=== PATIENT | female | born 1955 | race Caucasian/White ===

== ENCOUNTER 2016-04-26 20:35 | Inpatient (IN) | payer OTHER ==
[~2016-04-26] VITALS: Ht 160 cm; Wt 55.6 kg
[2016-04-26] MEDS ORDERED: DICYCLOMINE 20MG/2ML VIAL IM ONE (21:21)
[2016-04-26] MEDS ORDERED: ONDANSETRON 4 MG VIAL ONE (21:21)
[2016-04-26] MEDS ORDERED: SODIUM CHLORIDE 0.9% 1,000 ML ONE (21:21)
[2016-04-26] MEDS ORDERED: ACETAMINOPHEN 325 MG TAB ONE (21:57)
[2016-04-26] MEDS ORDERED: MULTIVITAMIN IV ONE (23:15)
[2016-04-26] MEDS ORDERED: [UNRECOGNIZED DRUG - OTHER] IV ONE (23:15)
[2016-04-26] MEDS ORDERED: THIAMINE IV ONE (23:15)
[2016-04-26] MEDS ORDERED: FOLIC ACID 1 MG IV ONE (23:15)
[2016-04-26] MEDS ORDERED: LACTATED RINGERS IV ONE (23:15)
[2016-04-26] MEDS ORDERED: OSELTAMIVIR 75 MG CAP PO ONE (23:20)
[2016-04-26] MEDS ORDERED: SODIUM CHLORIDE 0.9% 500 ML IV ONE (23:27)
[2016-04-26] MEDS ORDERED: MAG HYDROX 30 ML UDC PO PRN (23:35)
[2016-04-26] MEDS ORDERED: PROMETHAZINE 25 MG/ML VIAL IV PRN (23:35)
[2016-04-26] MEDS ORDERED: ALU/MAG/SIM 30 ML UDC PO PRN (23:35)
[2016-04-26] MEDS ORDERED: CHLORDIAZEPOXIDE 25 MG CAP PO PRN (23:35)
[2016-04-27] VITALS (11 sets, daily range): BP systolic 112–144; RESP 18–20; TEMP 99.2–100; Ht 160 cm; Wt 55.6 kg
[2016-04-27] MEDS: FAMOTIDINE 20 MG INJ IV SCH ×3 (02:39→21:24)
[2016-04-27] MEDS: POTASSIUM CHLORIDE PREMIX 50 ML IV SCH ×4 (02:40→06:26)
[2016-04-27] MEDS: ONDANSETRON 4 MG VIAL IV PRN ×2 (03:36→08:41)
[2016-04-27] MEDS ORDERED: *PINK BRACELET XX ONE (05:30)
[2016-04-27] MEDS: LEVOTHYROXINE 0.05 MG TAB PO SCH (06:17)
[2016-04-27] MEDS: FOLIC ACID 1 MG TAB PO SCH (08:14)
[2016-04-27] MEDS: [UNRECOGNIZED DRUG - OTHER] XX SCH ×2 (08:14→20:00)
[2016-04-27] MEDS: Propranolol 10 MG TAB PO SCH ×2 (08:16→21:25)
[2016-04-27] MEDS: MULTIVITS/MINERALS (THERAGRAN M) TAB PO SCH (08:16)
[2016-04-27] MEDS: THIAMINE 100 MG TAB PO SCH (08:16)
[2016-04-27] MEDS: OSELTAMIVIR 75 MG CAP PO SCH ×2 (08:17→21:25)
[2016-04-27] MEDS: SODIUM CHLOR 0.9% W/KCL 20MEQ 1,000 ML IV SCH ×2 (08:18→18:07)
[2016-04-27] MEDS: METRONIDAZOLE 500 MG TAB PO SCH ×2 (16:08→21:25)
[2016-04-27] MEDS ORDERED: SODIUM CHLOR 0.9% W/KCL 20MEQ 1,000 ML IV SCH (20:35)
[2016-04-28] VITALS (7 sets, daily range): BP systolic 100–136; RESP 16–18; TEMP 97.6–99.2
[2016-04-28] MEDS: LEVOTHYROXINE 0.05 MG TAB PO SCH (05:05)
[2016-04-28] MEDS: [UNRECOGNIZED DRUG - OTHER] XX SCH ×2 (08:42→19:27)
[2016-04-28] MEDS: FAMOTIDINE 20 MG INJ IV SCH ×2 (08:42→19:27)
[2016-04-28] MEDS: METRONIDAZOLE 500 MG TAB PO SCH ×3 (08:42→19:27)
[2016-04-28] MEDS: MULTIVITS/MINERALS (THERAGRAN M) TAB PO SCH (08:42)
[2016-04-28] MEDS: Propranolol 10 MG TAB PO SCH ×2 (08:42→19:27)
[2016-04-28] MEDS: OSELTAMIVIR 75 MG CAP PO SCH ×2 (08:42→19:26)
[2016-04-28] MEDS: FOLIC ACID 1 MG TAB PO SCH (08:42)
[2016-04-28] MEDS: THIAMINE 100 MG TAB PO SCH (08:42)
[2016-04-28] MEDS: NICOTINE 21 MG/24 HR TRANSDERM SCH (10:08)
[2016-04-28] MEDS: ACETAMINOPHEN 325 MG TAB PO PRN ×3 (10:08→20:03)
[2016-04-28] MEDS: KCL CR 8 MEQ TAB PO SCH ×3 (10:11→19:27)
[2016-04-29] MEDS: ACETAMINOPHEN 325 MG TAB PO PRN
[2016-04-29 03:51] VITALS: BP_SYST 126; RESP 18; TEMP 97
[2016-04-29] MEDS: LEVOTHYROXINE 0.05 MG TAB PO SCH (06:18)
[2016-04-29] MEDS: [UNRECOGNIZED DRUG - OTHER] XX SCH (08:00)
[2016-04-29] MEDS: MULTIVITS/MINERALS (THERAGRAN M) TAB PO SCH (08:13)
[2016-04-29] MEDS: FAMOTIDINE 20 MG INJ IV SCH (08:13)
[2016-04-29] MEDS: Propranolol 10 MG TAB PO SCH (08:13)
[2016-04-29] MEDS: THIAMINE 100 MG TAB PO SCH (08:13)
[2016-04-29] MEDS: METRONIDAZOLE 500 MG TAB PO SCH (08:14)
[2016-04-29] MEDS: KCL CR 8 MEQ TAB PO SCH (08:14)
[2016-04-29] MEDS: NICOTINE 21 MG/24 HR TRANSDERM SCH (08:14)
[2016-04-29] MEDS: OSELTAMIVIR 75 MG CAP PO SCH (08:14)
[2016-04-29 08:50] VITALS: BP_SYST 138; RESP 20; TEMP 97
[2016-04-29 12:04] VITALS: BP_SYST 138; RESP 20; TEMP 97
[2016-04-29 12:47] VITALS: BP_SYST 124; RESP 18; TEMP 99
== END 2016-04-29 17:05 | disposition home or self-care (01) | DRG 372 ==
LOC: ER 20:35 → EMR 23:31 → ENPENDDIS 23:31 → 4THW 04-27 00:59
PROVIDERS: ADMIT Internal Medicine; ATTEND Internal Medicine
DX: A04.7 Enterocolitis due to Clostridium difficile (principal); N17.9 Acute kidney failure, unspecified; I50.9 Heart failure, unspecified; F10.239 Alcohol dependence with withdrawal, unspecified; J11.2 Influenza due to unidentified influenza virus with gastrointestinal manifestations; E03.9 Hypothyroidism, unspecified; J44.9 Chronic obstructive pulmonary disease, unspecified; K21.9 Gastro-esophageal reflux disease without esophagitis; M19.90 Unspecified osteoarthritis, unspecified site; M79.7 Fibromyalgia; F41.9 Anxiety disorder, unspecified; F32.9 Major depressive disorder, single episode, unspecified; Z72.0 Tobacco use; E87.6 Hypokalemia; E86.0 Dehydration
CPT/HCPCS: 36415; 71020; 80048; 80053; 80320; 81001; 82553; 82607; 82728; 82746; 83540; 83605; 83690; 83735; 83880; 84439; 84443; 84466; 84484; 85025; 87040; 87493; 87804; 93005; 94799; 96361; 96365; 96372; 96375